=== PATIENT | female | born 1995 | race African-American/Black ===

== ENCOUNTER 2021-07-20 16:25 | Emergency (ER) | payer OTHER ==
[2021-07-20] MEDS ORDERED: Ketorolac Tromethamine 30 MG/ML VIAL ONE (18:23)
== END 2021-07-20 18:35 | disposition home or self-care (01) ==
LOC: CSHERS 16:25
DX: S23.3XXA Sprain of ligaments of thoracic spine, initial encounter (principal); I10 Essential (primary) hypertension; X58.XXXA Exposure to other specified factors, initial encounter
CPT/HCPCS: 96372; 99283; J1885

== ENCOUNTER 2022-01-16 15:38 | Emergency (ER) | payer OTHER ==
[2022-01-16 17:12] LABS: Bilirubin Neg (Negative); Blood, Urine Negative (Negative); Clarity Clear (Clear); Glucose, Urine (Dipstick) Normal (Negative); Ketone, Urine Negative (Negative); Leukocyte Negative (Negative); Nitrite Negative (Negative); Pregnancy Test - Urine (BHCG) Negative (Negative); Pregu Control Background? CLEAR/WHITE (CLR/WHITE); Pregu Control Bar Appear? YES (CONTROL BAR); Protein, Urine (Dipstick) 15 mg/dl (Neg-Trace); Specific Gravity 1.025 (1.002-1.036); Specific Gravity, Urine 1.025 (1.005-1.030)
[2022-01-17 11:35] LABS: Chlamydia by PCR Not Detected (NotDetected); GC by PCR Not Detected (NotDetected)
== END 2022-01-16 17:45 | disposition home or self-care (01) ==
LOC: CSHERS 15:38
DX: B37.31 Acute candidiasis of vulva and vagina (principal); I10 Essential (primary) hypertension; Z79.899 Other long term (current) drug therapy
CPT/HCPCS: 81003; 81025; 87480; 87491; 87510; 87591; 87660; 99283

== ENCOUNTER 2024-01-11 12:52 | Emergency (ER) | payer OTHER | END 2024-01-11 13:34 | disposition left against medical advice (07) | LOC: CSHERS 12:52 | DX: Z53.21 Procedure and treatment not carried out due to patient leaving prior to being seen by health care provider (principal) ==

== ENCOUNTER 2024-12-03 13:31 | Emergency (ER) | payer SELFPAY | END 2024-12-03 15:30 | LOC: CSHERS 13:31 | DX: J06.9 Acute upper respiratory infection, unspecified (principal); B97.89 Other viral agents as the cause of diseases classified elsewhere; I10 Essential (primary) hypertension | CPT/HCPCS: 87081; 87428; 87430; 99283 ==